=== PATIENT | female | born 1940 | race Hispanic/Latino ===

== ENCOUNTER → 2017-07-08 | Outpatient (CLI) | payer MEDICARE ==
[~2017-07-08] MED LIST: REGADENOSON 0.4 MG/5 ML SYR IV ONE
--- NOTE | 2017-07-12 14:47 | Cardiology Report ---
DATE OF STUDY: July 08, 2017 NUCLEAR STRESS TEST PROCEDURE TITLE: Rest/stress single isotope SPECT imaging with exercise stress and gated SPECT imaging. INDICATIONS: Chest pain. PROCEDURE: The patient performed treadmill exercise using a Morro protocol, exercising for 5 minutes 2 seconds to stage 2 and completing estimated workload of 7 metabolic equivalents (METs). The test was terminated due to fatigue. The heart rate was 87 beats per minute at rest and increased to 140 beats per minute at peak exercise, which was 97% of the maximum predicted heart rate. The rest blood pressure was 154/86 and increased to 184/103 mmHg, which is a normal response. Patient did not develop any symptoms other than fatigue during the procedure. The resting electrocardiogram demonstrated normal sinus rhythm with right bundle branch block. There were no ST segment changes consistent with myocardial ischemia. Myocardial perfusion imaging was performed at rest following the injection of 10.2 mCi of tetrofosmin. At peak exercise, the patient was injected with 32 mCi of tetrofosmin and exercise was continued for 1 minute. FINDINGS: 1. The overall quality of the study is good. 2. Attenuation artefact is absent. Left ventricular cavity is noted to be normal size on the rest and stress studies. 3. SPECT images demonstrate a small severe fixed perfusion defect in the distal anterior and anterolateral wall on rest and stress imaging. Gated SPECT imaging reveals normal myocardial thickening and wall motion with akinesis of the distal anterior and anterolateral wall. The left ventricular ejection fraction was calculated to be greater than 70%. IMPRESSION: Myocardial perfusion imaging is abnormal. There is a small transmural scar in the distal anterior and anterolateral wall. Overall left ventricular systolic function was normal with regional wall motion abnormalities as above. Job#: [id number]
== END ==
LOC: NM 10:13
PROVIDERS: ATTEND Internal Medicine Cardiovascular Disease
DX: I10 Essential (primary) hypertension (principal); R07.89 Other chest pain; I25.10 Atherosclerotic heart disease of native coronary artery without angina pectoris
CPT/HCPCS: 78452; 93017; 93306; A9502